=== PATIENT | female | born 1985 | race Hispanic/Latino ===

== ENCOUNTER 2019-03-28 16:43 | Emergency (ER) | payer OTHER ==
[~2019-03-28] VITALS: Ht 170.2 cm; Wt 104.3 kg
[~2019-03-28 16:43] MED LIST: PROMETHAZINE HC25 M1 PO
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
[2019-03-28] MEDS ORDERED: TYLENOL EXTRA500 MG PO (17:13)
[2019-03-28] MEDS ORDERED: AMOXICILLIN500 MG PO (17:59)
[2019-03-28] MEDS ORDERED: ULTRAM50 MG PO (17:59)
== END 2019-03-28 18:15 | disposition home or self-care (01) ==
LOC: ED 16:43
DX: K08.89 Other specified disorders of teeth and supporting structures (principal); Z91.030 Bee allergy status
CPT/HCPCS: 99282